=== PATIENT | female | born 1990 | race Caucasian/White ===

== ENCOUNTER → 2016-09-16 | Outpatient (CLI) | payer OTHER ==
[~2016-09-16] MED LIST: CEPH500C2 PO; CYCL5TAB PO; LORA-741 PO; MEDR150I IM; MEDR150I19 INJ; MELO15TA4 PO; OXYC1TAB3 PO; PARO1TAB27 PO; SULF800T23 PO; TRAM-10 PO
== END | disposition home or self-care (01) ==
LOC: C.PAPS 10:41
PROVIDERS: ATTEND Obstetrics & Gynecology
DX: Z01.419 Encounter for gynecological examination (general) (routine) without abnormal findings (principal)

== ENCOUNTER → 2016-10-31 | Outpatient (CLI) | payer OTHER ==
[2016-10-31 13:11] LABS: CHOLESTEROL/HDL RATIO 2.9
== END | disposition home or self-care (01) ==
LOC: C.LABBFT 10:59
PROVIDERS: ATTEND Internal Medicine
DX: Z13.6 Encounter for screening for cardiovascular disorders (principal)

== ENCOUNTER 2017-01-28 15:28 | Emergency (ER) | payer OTHER ==
[~2017-01-28] VITALS: Ht 157.5 cm; Wt 82.3 kg
[~2017-01-28 15:28] MED LIST changes: -CEPH500C2 PO; -MEDR150I19 INJ; -MELO15TA4 PO; -OXYC1TAB3 PO; -SULF800T23 PO; -TRAM-10 PO
[2017-01-28 15:35] VITALS: TEMP 37.1; Ht 157.5 cm; Wt 82.3 kg
[2017-01-28] MEDS ORDERED: MEDR150I19 INJ (16:01)
[2017-01-28] MEDS ORDERED: MELO15TA4 PO (16:01)
[2017-01-28] MEDS ORDERED: OXYCODONE HCL IR 5 MG TAB (IMMEDIATE RELEASE) PO STA (16:06)
[2017-01-28] MEDS ORDERED: LIDOCAINE/EPINEPHRINE 1% 20 ML VIAL INFIL ONE (16:15)
[2017-01-28] MEDS ORDERED: CEPHALEXIN MONOHYDRATE 250 MG CAP PO ONE (17:00)
[2017-01-28] MEDS ORDERED: SULFAMETHOXAZOLE/TRIMETHOPRIM DS 800/160MG TAB PO ONE (17:00)
[2017-01-28] MEDS ORDERED: CEPH500C2 PO (17:05)
[2017-01-28] MEDS ORDERED: OXYC1TAB3 PO (17:05)
[2017-01-28] MEDS ORDERED: SULF800T23 PO (17:05)
--- NOTE | 2017-01-28 17:06 | EMERGENCY ROOM VISIT NOTE ---
ED Visit Note First contact with patient: 15:42 CHIEF COMPLAINT: Infection on the left inner thigh 2 days HISTORY OF PRESENT ILLNESS: Patient is a 26-year-old white female who presents to emergency department for evaluation of a red, tender, painful lump on the inner right thigh. She noticed a small area there to 3 days ago that she felt was a small pimple. She tried to pop it, but did not get any drainage. Yesterday became more sore, but was tolerable. Today, she felt increasing pain , redness, warmth and states that the area is firm to the touch. She rates her discomfort a 9/10. She is on meloxicam and muscle relaxers chronically and denies any relief with these medications. She does report relief with heat. She denies any fever or chills. No prior history of skin infections or abscesses. REVIEW OF SYSTEMS: Review of systems as per HPI. All other systems reviewed were negative. At least 6 systems reviewed. PMH: Electronic medical records are reviewed and summarized as above/below. See Problem List. Tetanus is up-to-date. SOCIAL HISTORY: Patient lives at home with her family. Employed. Smoker. PHYSICAL EXAM: Vital Signs: Reviewed Nurse's notes. CONSTITUTIONAL: Patient is a well-appearing 26-year-old white female who is awake and alert and in no acute distress. INTEGUMENTARY: There is an indurated area in the medial left thigh which measures about 3 cm in diameter with surrounding erythema. It is fluctuant but there is no pointing or drainage. No lymphangitis. EMERGENCY DEPARTMENT COURSE: The patient was medicated with oxycodone 10 mg orally for pain. The area was prepped with Betadine and anesthetized with 1% Lidocaine with epinephrine. Using sterile technique, the abscess cavity was incised with a number 11 scalpel blade. Purulent material drained and more was expressed. Culture was obtained and is pending. The abscess cavity was then irrigated copiously with normal saline solution and probed for loculations for which there was none. Plain gauze packing was placed in the wound and then a bulky, observing dressing. The patient will be placed on Keflex and Bactrim pending culture results. She is encouraged to apply warm compresses to the area , and was given a small prescription for oxycodone for pain. Differential diagnoses include abscess, cellulitis, lipoma, sebaceous cyst, necrotic lymph node, among others. Medication reconciliation: I attest that I have personally reviewed the patient' s current medication list. Blood pressure screening : Patient was found to have normal blood pressure on screening and does not require follow-up. Problem List Medical Problems: (1) Abnormal vaginal bleeding Status: Resolved (2) Anxiety Status: Chronic (3) Asthma Status: Chronic (4) Contusion of left hand Status: Resolved (5) Hypocalcemia Status: Resolved (6) Hypomagnesemia Status: Resolved (7) Knee pain Status: Resolved (8) Knee pain Status: Resolved (9) Migraines Status: Chronic (10) Muscle twitching Status: Resolved (11) Nausea and vomiting Status: Resolved (12) Panic attack Status: Resolved (13) Vomiting Status: Resolved Surgical Problems: (1) H/O wisdom tooth extraction Status: Resolved Current/Historical Medications Scheduled Cephalexin Monohydrate (Keflex), 500 MG PO QID Medroxyprogesterone Acetate (C (Medroxyprogesterone Aceta), 1 ML INJ EVERY 12 WEEKS Meloxicam (Meloxicam), 15 MG PO DAILY Paroxetine (Paxil), 20 MG PO QPM Sulfa/Trimethoprim (Bactrim Ds 800MG/160MG), 1 TAB PO BID Scheduled PRN Cyclobenzaprine Hcl (Flexeril), 5 MG PO TID PRN for Muscle Spasm Lorazepam (Ativan), 0.5 MG PO Q12 PRN for Anxiety Oxycodone Immediate Rel Tab (Roxicodone Ir), 1-2 TAB PO Q4H PRN for Severe Pain Allergies Uncoded Allergies: PCN (Allergy, Unknown, itchy and yeast infection, 01/28/17) Vital Signs Date Time Temp Pulse Resp B/P (MAP) Pulse Ox O2 Delivery O2 Flow Rate FiO2 01/28/17 17:11 102 16 116/74 99 01/28/17 15:35 37.1 104 18 129/72 98 Room Air Medications Administered Medications (Trade) Dose Ordered Sig/Reji Route Start Time Stop Time Status Last Admin Dose Admin Oxycodone HCl (Roxicodone Immediate Rel Tab) 10 mg NOW STAT PO 01/28/17 16:06 01/28/17 16:08 DC 01/28/17 16:30 10 MG Cephalexin Monohydrate (Keflex Cap) 500 mg NOW ONCE PO 01/28/17 17:00 01/28/17 17:01 DC 01/28/17 16:58 500 MG Trimethoprim/ Sulfamethoxazole (Septra Ds 800/ 160MG Tab) 1 tab NOW ONCE PO 01/28/17 17:00 01/28/17 17:01 DC 01/28/17 16:59 1 TAB Departure Information Impression Primary Impression: Thigh abscess Prescriptions Oxycodone Immediate Rel Tab (ROXICODONE IR) 5 Mg Tab 1-2 TAB PO Q4H Y for Severe Pain, #10 TAB For Initial Treatment Prov: Roxy Rojo PA 01/28/17 Sulfa/Trimethoprim (Bactrim Ds 800MG/160MG) Tab 1 TAB PO BID, #20 TAB Prov: Roxy Rojo PA 01/28/17 Cephalexin Monohydrate (KEFLEX) 500 Mg Cap 500 MG PO QID, #40 CAP Prov: Roxy Rojo PA 01/28/17 Referrals Bobby Mirza M.D. (PCP) Patient Instructions My [facility] Additional Instructions DO NOT drive, drink alcohol, operate machinery, or perform dangerous activities today. You were given medications in the ER that can affect your ability to safely function or operate a vehicle. Oxycodone (OxyIR) 5mg: Take 1-2 pills every four hours for breakthrough pain. Avoid alcohol, operating machinery or dangerous equipment, working on ladders or roofs, DRIVING, or situations where being under the influence may be dangerous. It is recommended to use an [id number] stool softener such as Colace, 100mg twice daily while taking this medication to avoid constipation. Cephalexin(Keflex) 500mg: Take one pill four times daily for 10 days for your skin infection. All antibiotics can cause diarrhea. If this occurs and you feel worse or it does not resolve in 1-2 days follow up with your doctor or return to the Emergency Department as this could be signs of serious underlying problems. Any medication can cause an allergic reaction, stop the pills immediately and return to the ER for rash, hives, breathing difficulties, or swelling. Trimethoprim-Sulfamethoxazole(Bactrim DS): Take one pill twice daily for 10 days for your skin infection. All antibiotics can cause diarrhea. If this occurs and you feel worse or it does not resolve in 1-2 days follow up with your doctor or return to the Emergency Department as this could be signs of serious underlying problems. Any medication can cause an allergic reaction, stop the pills immediately and return to the ER for rash, hives, breathing difficulties, or swelling. Ibuprofen(Motrin, Advil) may be used for fever or pain. Use 600mg every six hours as needed. Take with food. Avoid using more than 2400mg in a 24 hour period. Do not use 2400mg per day for more than three consecutive days without physician direction. Prolonged inappropriate use can lead to stomach upset or ulcers. (AND/OR) Acetaminophen(Tylenol) may be used for fever or pain. Use 1000mg every six hours as needed. Avoid using more than 3000mg in a 24 hour period. Warm compresses to the affected area 4 times daily for 15-20 minutes. Dressing changes daily, more often if it becomes saturated or soiled. May shower, be careful to not remove the packing material accidentally when changing the bandage or bathing. Rest and drink plenty of fluids. Continue current medications. Return to the ER in 48 hours for packing removal, immediately for severe pain, persistent fevers, spreading redness, or any worsening of your condition. Follow up with your primary physician within 2-3 days for a recheck of the current condition.
[2017-01-28 17:11] VITALS: BP 116/74; PULSE 102; O2SAT 99
--- NOTE | 2017-02-01 16:56 | Pharmacy Progress Note ---
ED Pharmacist Culture FollowUp Date of Service: Feb 01, 2017. Patient was sent home with a prescription for cephalexin and Bactrim. Cephalexin should cover the Group B beta Strep isolated in the patient's abcess culture. However, Prevotella will not be covered by either cephalexin or Bactrim. Despite this, treatment of abscess can sometimes with successful with I&D alone and therefore may not require additional therapy. Called patient regarding abscess culture. Patient reports improvement in the abscess, although there is still a small harder spot present. She has already been seen in follow-up as an outpatient, and reports that the outpatient provider recommended following for now and may consider further drainage if symptoms worsen. Counseled to stop Bactrim, continue Keflex, and follow-up with outpatient PCP as planned. Case discussed with Sola Rojo PA-C.
== END 2017-01-28 17:12 | disposition home or self-care (01) ==
LOC: C.EDB 15:30 → C.EDD 17:12
DX: L02.416 Cutaneous abscess of left lower limb (principal); F41.9 Anxiety disorder, unspecified; J45.909 Unspecified asthma, uncomplicated; G43.909 Migraine, unspecified, not intractable, without status migrainosus; F17.210 Nicotine dependence, cigarettes, uncomplicated; Z79.899 Other long term (current) drug therapy

== ENCOUNTER 2017-04-13 21:04 | Emergency (ER) | payer OTHER ==
[~2017-04-13] VITALS: Ht 157.5 cm; Wt 83.8 kg
[~2017-04-13 21:04] MED LIST changes: +CEPH500C2 PO; -MEDR150I IM; +MEDR150I19 INJ; +MELO15TA4 PO; +OXYC1TAB3 PO; +SULF800T23 PO
[2017-04-13 21:07] VITALS: BP 127/87; PULSE 90; TEMP 36.8; O2SAT 98; Ht 157.5 cm; Wt 83.8 kg
[2017-04-13] MEDS ORDERED: LORAZEPAM 1 MG TAB PO STA (21:43)
--- NOTE | 2017-04-13 22:29 | DIAGNOSTIC IMAGING REPORT ---
RIGHT SHOULDER MIN 2 VIEWS ROUTINE HISTORY: 26 years-old Female acute right shoulder pain. COMPARISON: Chest radiograph 06/15/2016 TECHNIQUE: 3 views of the right shoulder. FINDINGS: No acute fracture, dislocation or significant degenerative changes. No opaque foreign body. Imaged lung nixon are clear. IMPRESSION: No acute bony abnormality. The above report was generated using voice recognition software. It may contain grammatical, syntax or spelling errors. Electronically signed by: Judah Barakta M.D. 04/13/2017 10:27 PM Dictated Date/Time: 04/13/2017 10:26 PM
--- NOTE | 2017-04-14 14:39 | EMERGENCY ROOM VISIT NOTE ---
ED Visit Note First contact with patient: 21:15 CHIEF COMPLAINT: Shoulder pain HISTORY OF PRESENT ILLNESS: This 26-year-old female patient presents to the emergency department complaining of pain in the right shoulder that began less than one hour ago. The patient was seated in a chair at home when she began having pain beginning near her right clavicle into her shoulder and up her neck. The patient was having difficulty moving her head at the time, as the muscles felt tight. There is no limitation of motion of the arm because of the pain. The pain is moderate, constant and increases with motion of the hand and arm. The patient states the pain is dull and 9/10. The patient has had ongoing symptoms like this for some time, and is on daily Moban And Flexeril for this. She was to have an orthopedic appointment earlier today, however this was rescheduled for next week No numbness or tingling. No chest pain or shortness of breath. No abdominal pain or nausea/vomiting. No cough. REVIEW OF SYSTEMS: A 6 system review of systems was performed with positives and pertinent negatives in the HPI. ALLERGIES: Penicillin MEDICATIONS: See EMR PMH: See EMR SOCIAL HISTORY: Lives locally with family PHYSICAL EXAM: Vital Signs: Reviewed nurse's notes, vital signs stable. GENERAL : White female, in no acute distress, but appears to be in pain, well-developed , well-nourished. MUSCULOSKELETAL: There is no deformity in the contour of the right shoulder and there are no alex deformities noted. There is no sulcus sign. There is tenderness over the right clavicle. The patient's range of motion is is not limited. Supraspinatus strength 5/5. No tenderness of the humerus, elbow, wrist, or hand. Real Estate Account Executive strength 5/5. Radial pulse 2+. NECK: No significant tenderness to palpation over the cervical spine. The patient is with some mild decreased range of motion with axial rotation to the left. She is unable to comfortably but her left ear to her left shoulder. HEART: Regular rate and rhythm without murmurs gallops or rubs. LUNGS: Clear to auscultation bilaterally without wheezes, rales or rhonchi. No accessory muscle use. No retractions. NEURO: The patient is alert and oriented to person, place, and time. Normal sensation to light and sharp touch. Capillary refill less than 2 seconds. RIGHT SHOULDER MIN 2 VIEWS ROUTINE HISTORY: 26 years-old Female acute right shoulder pain. COMPARISON: Chest radiograph 06/15/2016 TECHNIQUE: 3 views of the right shoulder. FINDINGS: No acute fracture, dislocation or significant degenerative changes. No opaque foreign body. Imaged lung nixon are clear. IMPRESSION: No acute bony abnormality. EMERGENCY DEPARTMENT COURSE: Physical exam and history were performed. Nursing notes and EMR were reviewed. The patient has vague right shoulder pain , which on examination seems most consistent with a muscle spasm. She is early on Flexeril and he did provide her 1 mg oral Ativan here in the department. I did perform x-rays, which did not show evidence of acute bony abnormality. Overall the patient did have improvement of her symptoms with the Ativan. She does have low back and Flexeril home, which she is to continue. Evidently the patient has an appointment with orthopedics next week for this complaint, and I recommended that she keep that appointment. She was otherwise invited back to the ER with any new, worsening, or concerning symptoms. Problem List Medical Problems: (1) Abnormal vaginal bleeding Status: Resolved (2) Anxiety Status: Chronic (3) Asthma Status: Chronic (4) Contusion of left hand Status: Resolved (5) Hypocalcemia Status: Resolved (6) Hypomagnesemia Status: Resolved (7) Knee pain Status: Resolved (8) Knee pain Status: Resolved (9) Migraines Status: Chronic (10) Muscle twitching Status: Resolved (11) Nausea and vomiting Status: Resolved (12) Panic attack Status: Resolved (13) Vomiting Status: Resolved Surgical Problems: (1) H/O wisdom tooth extraction Status: Resolved Current/Historical Medications Scheduled Medroxyprogesterone Acetate (C (Medroxyprogesterone Aceta), 1 ML INJ EVERY 12 WEEKS Meloxicam (Meloxicam), 15 MG PO DAILY Paroxetine (Paxil), 20 MG PO QPM Scheduled PRN Cyclobenzaprine Hcl (Flexeril), 5 MG PO TID PRN for Muscle Spasm Lorazepam (Ativan), 0.5 MG PO Q12 PRN for Anxiety Allergies Coded Allergies: Penicillins (Verified Allergy, Intermediate, ITCHY "ALL OVER", 04/13/17) Vital Signs Date Time Temp Pulse Resp B/P (MAP) Pulse Ox O2 Delivery O2 Flow Rate FiO2 04/13/17 21:07 36.8 90 18 127/87 98 Room Air Medications Administered Medications (Trade) Dose Ordered Sig/Reji Route Start Time Stop Time Status Last Admin Dose Admin Lorazepam (Ativan Tab) 1 mg NOW STAT PO 04/13/17 21:43 04/13/17 21:45 DC 04/13/17 21:59 1 MG Departure Information Impression Primary Impression: Right shoulder pain Dispostion Home / Self-Care Condition FAIR Forms HOME CARE DOCUMENTATION FORM, IMPORTANT VISIT INFORMATION Patient Instructions My [facility] Additional Instructions You were seen and evaluated today on an emergency basis only. This is not a substitute for, or an effort to provide, complete comprehensive medical care. It is not possible to recognize and treat all injuries or illnesses in a single emergency department visit. For this reason it is recommended that you followup with your orthopedist as scheduled next week for ongoing care and evaluation. Continue medications at home You are welcome to return to the emergency department anytime with new, worsening, or concerning symptoms.
== END 2017-04-13 22:42 | disposition home or self-care (01) ==
LOC: C.EDB 21:06 → C.EDD 22:42
DX: M25.511 Pain in right shoulder (principal); F41.9 Anxiety disorder, unspecified; J45.909 Unspecified asthma, uncomplicated; Z79.899 Other long term (current) drug therapy

== ENCOUNTER 2017-05-31 22:09 | Emergency (ER) | payer OTHER ==
[~2017-05-31] VITALS: Ht 157.5 cm; Wt 82.5 kg
[~2017-05-31 22:09] MED LIST changes: -PHEN-876 PO; -SULF800T23 PO
[2017-05-31 22:11] VITALS: TEMP 37; Ht 157.5 cm; Wt 82.5 kg
[2017-05-31] MEDS ORDERED: PHENAZOPYRIDINE HCL 200 MG TAB PO STA (22:21)
[2017-05-31] MEDS ORDERED: SEPTRA DS HOME PACK 1 EA VIAL PO ONE (22:30)
[2017-05-31] MEDS ORDERED: PHENAZOPYRIDINE HOME PACK 200 MG VIAL PO ONE (22:30)
[2017-05-31] MEDS ORDERED: SULFAMETHOXAZOLE/TRIMETHOPRIM DS 800/160MG TAB PO ONE (22:30)
--- NOTE | 2017-05-31 22:30 | EMERGENCY ROOM VISIT NOTE ---
History Report prepared by Abbey: Aurora Marin Under the Supervision of: Dr. Javon Peralta D.O. First contact with patient: 22:14 Chief Complaint: URINARY SYMPTOMS Stated Complaint: PAIN IN LOWER BACK,PAIN IN UTERUS WITH URINATION History of Present Illness The patient is a 26 year old female who presents to the Emergency Room with complaints of persistent urinary symptoms starting yesterday. Two days ago, she started having some lower abdominal cramping. Yesterday, she started having urinary frequency. She called her doctor today and had a UA which she has not gotten the results of. She started having worsening abdominal pain and lower back pain so she decided to come to the ED. She denies any nausea, vomiting, vaginal bleeding, or discharge. She has had UTI in the past, but she normally does not get any abdominal pain or back pain. She is on the depo shot and does not get her menstrual period. She admits to tobacco use. Source of History: patient Onset: yesterday Position: other (global) Quality: other (urinary symptoms) Timing: other (persistent) Associated Symptoms: + abdominal pain, + back pain, No nausea, No vomiting Note: Pt denies vaginal bleeding/discharge. Review of Systems See HPI for pertinent positives & negatives. A total of 10 systems reviewed and were otherwise negative. Past Medical & Surgical Medical Problems: (1) Abnormal vaginal bleeding (2) Anxiety (3) Asthma (4) Contusion of left hand (5) Hypocalcemia (6) Hypomagnesemia (7) Knee pain (8) Knee pain (9) Migraines (10) Muscle twitching (11) Nausea and vomiting (12) Panic attack (13) Vomiting Surgical Problems: (1) H/O wisdom tooth extraction Family History Diabetes mellitus Hypertension Social History Smoking Status: Current Every Day Smoker Alcohol Use: none Marital Status: single Occupation Status: employed Current/Historical Medications Scheduled Medroxyprogesterone Acetate (C (Medroxyprogesterone Aceta), 1 ML INJ EVERY 12 WEEKS Meloxicam (Meloxicam), 15 MG PO DAILY Paroxetine (Paxil), 20 MG PO QPM Sulfa/Trimethoprim (Bactrim Ds 800MG/160MG), 1 TAB PO BID Scheduled PRN Cyclobenzaprine Hcl (Flexeril), 5 MG PO TID PRN for Muscle Spasm Lorazepam (Ativan), 0.5 MG PO Q12 PRN for Anxiety Phenazopyridine HCl (Pyridium), 200 MG PO TID PRN for Burning/Frequency w/ Urination Allergies Coded Allergies: Penicillins (Verified Allergy, Intermediate, ITCHY "ALL OVER", 05/31/17) Physical Exam Vital Signs Date Time Temp Pulse Resp B/P (MAP) Pulse Ox O2 Delivery O2 Flow Rate FiO2 05/31/17 22:55 84 20 97/70 98 Room Air 05/31/17 22:11 37.0 102 18 138/87 96 Room Air Physical Exam GENERAL: Patient is awake, alert, and in no acute distress. Patient is resting comfortably and showing no signs of anxiety EYES: The conjunctivae are clear. The pupils are round and reactive. EARS, NOSE, MOUTH AND THROAT: The nose is without any evidence of any deformity. Mucous membranes are moist tongue is midline NECK: The neck is nontender and supple. RESPIRATORY: Normal respiratory effort is noted there is no evidence of wheezing rhonchi or rales CARDIOVASCULAR: Regular rate and rhythm noted there no murmurs rubs or gallops normal S1 normal S2 GASTROINTESTINAL: The abdomen is soft. Bowel sounds are present in all quadrants. Abdomen is nontender BACK: No midline tenderness or or step-off noted range of motion in flexion extension as well as rotation no signs of muscle spasm noted MUSCULOSKELETAL/EXTREMITIES: There is no evidence of gross deformity full range of motion is noted in the hips and shoulders SKIN: There is no obvious evidence of any rash. There are no petechiae, pallor or cyanosis noted. NEUROLOGIC: Patient is awake alert and oriented x3 strength is symmetric patellar reflexes are 2+ bilaterally Medical Decision & Procedures Laboratory Results Test 05/31/17 22:30 Urine Color DK YELLOW Urine Appearance CLOUDY (CLEAR) Urine pH 6.5 (4.5-7.5) Urine Specific [place] 1.016 (1.000-1.030) Urine Protein 1+ (NEG) Urine Glucose (UA) NEG (NEG) Urine Ketones NEG (NEG) Urine Occult Blood TRACE (NEG) Urine Nitrite NEG (NEG) Urine Bilirubin NEG (NEG) Urine Urobilinogen NEG (NEG) Urine Leukocyte Esterase MODERATE (NEG) Urine WBC (Auto) >30 /hpf (0-5) Urine RBC (Auto) 0-4 /hpf (0-4) Urine Hyaline Casts (Auto) 10-30 /lpf (0-5) Urine Epithelial Cells (Auto) 5-10 /lpf (0-5) Urine Bacteria (Auto) NEG (NEG) Urine Yeast (Auto) PRESENT (NONE PRSENT) Urine Test NEG (NEG) Laboratory results per my review. Medications Administered Medications (Trade) Dose Ordered Sig/Reji Route Start Time Stop Time Status Last Admin Dose Admin Phenazopyridine HCl (Phenazopyridine HCl 200MG Home Pack) 1 homepack UD ONCE PO 05/31/17 22:30 05/31/17 22:31 DC 05/31/17 22:49 1 HOMEPACK Phenazopyridine HCl (Pyridium Tab) 200 mg NOW STAT PO 05/31/17 22:21 05/31/17 22:23 DC 05/31/17 22:49 200 MG Trimethoprim/ Sulfamethoxazole (Sulfameth/ Trimeth Ds 800/ 160MG Home Pack) 1 homepack UD ONCE PO 05/31/17 22:30 05/31/17 22:31 DC 05/31/17 22:49 1 HOMEPACK Trimethoprim/ Sulfamethoxazole (Septra Ds 800/ 160MG Tab) 1 tab NOW ONCE PO 05/31/17 22:30 05/31/17 22:31 DC 05/31/17 22:49 1 TAB ED Course 2220: The patient was evaluated in room B8. A complete history and physical examination were performed. 2221: Pyridium Tab 200 mg PO. 2230: Septra Ds 800/160 mg tab 1 tab PO, Trimethoprim/Sulfamethoxazole 1 homepack PO, Phenazopyridine HCl 1 homepack PO. 2250: Upon reevaluation, the patient is resting comfortably. I discussed the results and treatment plan with her. She verbalized agreement of the treatment plan. She was discharged home. Medical Decision Prior records/ancillary studies reviewed. Triage Nursing notes reviewed. The patient's history was concerning for abdominal pain. Differential diagnosis: Etiologies such as appendicitis, diverticulitis, PUD, biliary pathology, UTI, pancreatitis, obstruction, mesenteric ischemia, aortic pathology, infections, inflammatory bowel disease, renal colic, as well as others were entertained. The patient is a 26-year-old female who presented to the emergency department for an evaluation of dysuria and frequency. The patient presented to the emergency department because she was having ongoing symptoms. She had a urinalysis done earlier in the day. I reviewed the urinalysis and it did show signs of urinary tract infection. She was started on Pyridium and Bactrim in the emergency department. She was encouraged to drink plenty clear liquids and follow-up with her primary care physician she is possible. Otherwise she was encouraged to return the emergency Department immediately if symptoms change worsen or the need arises. Specifically she was told to return if she develops severe pain severe back pain nausea vomiting or was not able to tolerate the medications. Medication Reconcilliation Current Medication List: was personally reviewed by me Blood Pressure Screening Patient's blood pressure: Normal blood pressure Blood pressure disposition: Did not require urgent referral Impression Primary Impression: Cystitis Scribe Attestation The scribe's documentation has been prepared under my direction and personally reviewed by me in its entirety. I confirm that the note above accurately reflects all work, treatment, procedures, and medical decision making performed by me. Departure Information Dispostion Home / Self-Care Prescriptions Sulfa/Trimethoprim (Bactrim Ds 800MG/160MG) Tab 1 TAB PO BID, #14 TAB Prov: Javon Peralta, DO 05/31/17 Phenazopyridine HCl (Pyridium) 200 Mg Tab 200 MG PO TID Y for Burning/Frequency w/Urination, #6 TAB Prov: Javon Peralta, 05/31/17 Referrals Bobby Mirza M.D. (PCP) Forms HOME CARE DOCUMENTATION FORM, IMPORTANT VISIT INFORMATION Patient Instructions ED UTI Cystitis Female, My [facility] Additional Instructions Call your family to schedule a follow-up appointment. Drink plenty clear liquids. Continue all medications as prescribed.
[2017-05-31] MEDS ORDERED: PHEN-876 PO (22:33)
[2017-05-31] MEDS ORDERED: SULF800T23 PO (22:33)
[2017-05-31 22:44] LABS: URINE APPEARANCE CLOUDY (CLEAR); URINE BILIRUBIN NEG (NEG); URINE COLOR DK YELLOW; URINE NITRITE NEG (NEG); URINE PH 6.5 (4.5-7.5); URINE SPECIFIC GRAVITY 1.016 (1.000-1.030); UROBILINOGEN NEG (NEG)
[2017-05-31 22:47] LABS: MANUAL MICROSCOPIC REQUIRED? NO; REVIEW REQ? YES
[2017-05-31 22:55] VITALS: BP 97/70; PULSE 84; O2SAT 98
== END 2017-05-31 22:59 | disposition home or self-care (01) ==
LOC: C.EDB 22:10
DX: N30.90 Cystitis, unspecified without hematuria (principal); J45.909 Unspecified asthma, uncomplicated; F41.9 Anxiety disorder, unspecified; E83.51 Hypocalcemia; E83.42 Hypomagnesemia; Z83.3 Family history of diabetes mellitus; Z82.49 Family history of ischemic heart disease and other diseases of the circulatory system; F17.200 Nicotine dependence, unspecified, uncomplicated

== ENCOUNTER → 2017-05-31 | Outpatient (CLI) | payer OTHER ==
[~2017-05-31] MED LIST changes: -CEPH500C2 PO; -OXYC1TAB3 PO; +PHEN-876 PO
[2017-05-31 17:41] LABS: URINE APPEARANCE CLEAR (CLEAR); URINE BILIRUBIN NEG (NEG); URINE COLOR YELLOW; URINE NITRITE NEG (NEG); URINE PH 7.5 (4.5-7.5); URINE SPECIFIC GRAVITY 1.014 (1.000-1.030); UROBILINOGEN NEG (NEG)
[2017-05-31 17:49] LABS: MANUAL MICROSCOPIC REQUIRED? NO; REVIEW REQ? NO; SULFASALICYLIC ACID POS (NEG)
== END | disposition home or self-care (01) ==
LOC: C.LABBFT 11:19
PROVIDERS: ATTEND Internal Medicine
DX: R39.9 Unspecified symptoms and signs involving the genitourinary system (principal)

== ENCOUNTER → 2017-09-19 | Outpatient (CLI) | payer OTHER ==
[~2017-09-19] MED LIST changes: +MELO-83 PO; -MELO15TA4 PO; +PHEN-876 PO; +SULF800T23 PO
== END | disposition home or self-care (01) ==
LOC: C.PAPS 16:30
PROVIDERS: ATTEND Obstetrics & Gynecology
DX: Z01.419 Encounter for gynecological examination (general) (routine) without abnormal findings (principal)

== ENCOUNTER → 2017-10-16 | Outpatient (CLI) | payer OTHER ==
--- NOTE | 2017-10-16 14:53 | DIAGNOSTIC IMAGING REPORT ---
ART DOP DUP UPPER EXT BILAT CLINICAL HISTORY: 26 years-old Female presenting with THORACIC OUTLET SYNDROME, right-sided symptomatic, symptomatic while pronating the hand with arm outstretched. TECHNIQUE: Pulse volume recording of the bilateral upper extremities was performed. Provocative maneuvers to assess for thoracic outlet syndrome are performed. COMPARISON: None. FINDINGS: Baseline arterial waveforms of the upper extremities are normal bilaterally at rest. No significant change on the provocative maneuvers to suggest obstruction. IMPRESSION: No evidence of thoracic outlet syndrome. Electronically signed by: Jacob Storey M.D. 10/16/2017 2:52 PM Dictated Date/Time: 10/16/2017 2:47 PM
== END | disposition home or self-care (01) ==
LOC: C.ULTR 13:12
PROVIDERS: ATTEND Surgery
DX: G54.0 Brachial plexus disorders (principal)

== ENCOUNTER → 2017-11-02 | Outpatient (CLI) | payer OTHER ==
[2017-11-02 13:34] LABS: HEP C IGG 13 YRS+OLDER_RFLX NEG (NEG)
== END | disposition home or self-care (01) ==
LOC: C.LAB1850 09:55
PROVIDERS: ATTEND Physician Assistant
DX: Z11.3 Encounter for screening for infections with a predominantly sexual mode of transmission (principal); L29.8 Other pruritus

== ENCOUNTER 2018-01-03 19:28 | Emergency (ER) | payer OTHER ==
[~2018-01-03] VITALS: Ht 157.5 cm; Wt 87.3 kg
[~2018-01-03 19:28] MED LIST changes: -PHEN-876 PO; -SULF800T23 PO
[2018-01-03 19:50] VITALS: TEMP 37.2; Ht 157.5 cm; Wt 87.3 kg
--- NOTE | 2018-01-03 20:13 | EMERGENCY ROOM VISIT NOTE ---
ED Visit Note First contact with patient: 19:55 CHIEF COMPLAINT: Infection of the perineum HISTORY OF PRESENT ILLNESS: This 27-year-old female patient presents to the emergency department after they noticed a hard, red, tender area in the right perineal region approximately 5 days ago. Patient states that she attempted to squeeze it and poked it with a needle, but she was unable to drain anything from it. It is slowly getting larger, more painful and tender. No fever, chills, or loss of appetite. There has been no drainage from the area. There was no injury to the area preceding the infection, but she does shave in this area regularly. They rate the pain as aching and burning and 6/10. Tetanus shot is up to date. They have tried Tylenol and ibuprofen for the pain without improvement. The patient is not diabetic. The patient has a history of similar abscess in the same area in the past. She denies headaches, neck pain, chest pain, SOB, nausea or vomiting, urinary symptoms, or unusual rash. REVIEW OF SYSTEMS: A complete 10 system review of systems was performed with positives and pertinent negatives listed in the history of present illness. All other systems were reviewed and are negative. ALLERGIES: Reviewed in chart, see below. MEDICATIONS: Reviewed in chart, see below. PMH: Reviewed in chart, see problem list below. SOCIAL HISTORY: Lives at home. She is a former smoker. PHYSICAL EXAM: Vital Signs: Reviewed Nurse's notes, vital signs stable, afebrile. GENERAL: Pleasant and cooperative, no acute distress, non toxic in appearance, well- developed well-nourished. SKIN: There is an erythematous indurated area of the right perineal area outside of the labia which measures about 3 cm in diameter. It is fluctuant but there is no pointing or drainage. There is a zone of inflammation around it but no lymphangitis. Capillary refill less than 2 seconds. MUSCULOSKELETAL: There is no limitation of the range of motion of the lower extremities. EMERGENCY DEPARTMENT COURSE: I examined the patient. Findings consistent with a small perineal abscess that most likely arose from an ingrown hair follicle. No surrounding cellulitis. Verbal consent was obtained to perform the procedure. After saline and Betadine cleansing and 1 mL of 1% buffered lidocaine with epinephrine for anesthesia, the abscess was incised with a number 11 scalpel blade. A small amount of purulent material was released with more expressed by pressure. The abscess cavity was further probed with a needle escort car driver, no deep pockets found. The abscess cavity was then copiously irrigated with sterile saline under pressure. The area was fairly superficial and did not warrant packing. The area was cleaned with sterile saline and dressed with bacitracin and a bulky bandage. The patient tolerated the procedure well. Patient was educated regarding wound care, follow-up, and return precautions, she verbalized understanding. The patient was discharged home in stable condition and ambulatory. Problem List Medical Problems: (1) Abnormal vaginal bleeding Status: Resolved (2) Anxiety Status: Chronic (3) Asthma Status: Chronic (4) Contusion of left hand Status: Resolved (5) Hypocalcemia Status: Resolved (6) Hypomagnesemia Status: Resolved (7) Knee pain Status: Resolved (8) Knee pain Status: Resolved (9) Migraines Status: Chronic (10) Muscle twitching Status: Resolved (11) Nausea and vomiting Status: Resolved (12) Panic attack Status: Resolved (13) Vomiting Status: Resolved Surgical Problems: (1) H/O wisdom tooth extraction Status: Resolved Current/Historical Medications Scheduled Medroxyprogesterone Acetate (C (Medroxyprogesterone Aceta), 1 ML INJ EVERY 12 WEEKS Meloxicam (Meloxicam), 15 MG PO DAILY Paroxetine HCl (Paroxetine), 40 MG PO QPM Ranitidine Hcl (Zantac), 150 MG PO BID Scheduled PRN Cyclobenzaprine Hcl (Flexeril), 5 MG PO TID PRN for Muscle Spasm Lorazepam (Ativan), 0.5 MG PO Q12 PRN for Anxiety Allergies Coded Allergies: Penicillins (Verified Allergy, Intermediate, ITCHY "ALL OVER", 01/03/18) Vital Signs Date Time Temp Pulse Resp B/P (MAP) Pulse Ox O2 Delivery O2 Flow Rate FiO2 01/03/18 21:20 97 16 134/90 94 01/03/18 20:20 89 16 119/74 95 Room Air 01/03/18 19:50 37.2 99 17 134/74 96 Room Air Departure Information Impression Primary Impression: Perineal abscess, superficial Dispostion Home / Self-Care Condition GOOD Referrals Bobby Mirza M.D. (PCP) Patient Instructions ED Abscess [facility] Additional Instructions You were seen in the Emergency Department for Incision and Drainage of your abscess. You have been provided with a syringe, use this to flush out the incision twice a day. You may also perform sitz baths 2-3 times a day for the next few days to help the area heal. Proper wound care is essential for adequate wound healing and infection prevention. You can shower and clean the wound with soap and water. Do not scour over the wound. Pat dry with a towel. Do not submerse the wound (i.e. bathe or dish wash) until the sutures have been removed. You can use an antibiotic ointment with a dressing over the wound for the next 3-4 days. After this time you may leave the wound dry and open to the air. If crust develops over the wound you can use a Q-tip to apply a 1:1 peroxide:water solution to clean the wound. Look for signs of worsening infection of the wound including: increased pain, swelling, foul discharge, streaking, or fever/chills. If any of these are noticed you should return to the Emergency Department for further assessment and treatment. As with any laceration you may have received nerve damage to the surrounding tissues. This damage may or may not be permanent. For pain control, you can use the following [id number] medicines (if >12 yo): - Regular strength (325mg/tab) Tylenol (acetaminophen) 2 tabs every 4-6 hours as needed. Do not exceed 10 tablets in a 24 hour period. Avoid taking more than 3000 mg of Tylenol per day. This includes any other sources of acetaminophen you may take on a regular basis. - Regular strength (200 mg/tab) Advil (ibuprofen) 3 tabs every 6-8 hours as needed. Do not exceed a dose of 2400 mg per day. Please follow-up with your primary care provider in the next 2-3 days for wound check, or sooner for worsening symptoms. Return to the emergency department if your symptoms worsen despite treatment course outlined above. Work Instructions Return To Work: 2 days
[2018-01-03] MEDS ORDERED: LIDOCAINE/EPINEPHRINE 1% 20 ML VIAL INFIL ONE (20:15)
[2018-01-03] MEDS ORDERED: RANI150T3 PO (20:38)
[2018-01-03] MEDS ORDERED: PARO40TA2 PO (20:38)
[2018-01-03 21:20] VITALS: BP 134/90; PULSE 97; O2SAT 94
== END 2018-01-03 21:19 | disposition home or self-care (01) ==
LOC: C.EDB 19:30 → C.EDC 21:19
DX: Z87.891 Personal history of nicotine dependence (principal); J45.909 Unspecified asthma, uncomplicated; Z79.3 Long term (current) use of hormonal contraceptives; Z79.899 Other long term (current) drug therapy; F41.9 Anxiety disorder, unspecified; Z88.0 Allergy status to penicillin; L02.215 Cutaneous abscess of perineum

== ENCOUNTER → 2018-03-22 | Outpatient (CLI) | payer OTHER ==
[~2018-03-22] MED LIST changes: +EFF75 PO; -PARO1TAB27 PO; +RANI150T3 PO
== END | disposition home or self-care (01) ==
LOC: C.LABBFT 09:35
PROVIDERS: ATTEND Physician Assistant Medical
DX: N91.2 Amenorrhea, unspecified (principal)